=== PATIENT | male | born 1985 | race Caucasian/White ===

== ENCOUNTER 2020-05-30 03:50 | Emergency (ER) | payer SELFPAY ==
[~2020-05-30] VITALS: Ht 177.8 cm; Wt 78.5 kg
[2020-05-30 03:57] VITALS: BP 135/85
[2020-05-30] MEDS ORDERED: MORPHINE SULFATE 4 MG/ML SYR IVP ONE (04:10)
[2020-05-30] MEDS ORDERED: ASPIRIN 325 MG TAB PO ONE (04:10)
[2020-05-30 04:59] LABS: BASOPHILS % (AUTO) 0.7 % (0.0-2.0); EOSINOPHILS # (AUTO) 0.3 K/uL (0-0.4); EOSINOPHILS % (AUTO) 5.2 % (0.0-4.0); HEMATOCRIT 45.3 % (36-52); HEMOGLOBIN 15.8 g/dL (12.0-18.0); LYMPHOCYTES # (AUTO) 2.3 K/uL (2.0-11.5); LYMPHOCYTES % (AUTO) 38.5 % (20.5-51.1); MEAN CORPUSCULAR HEMOGLOBIN 31 pg (27-31); MEAN CORPUSCULAR HGB CONC 35 g/dL (33-37); MEAN CORPUSCULAR VOLUME 88.5 fL (80-94); MONOCYTES # (AUTO) 0.5 K/uL (0.8-1.0); MONOCYTES % (AUTO) 7.6 % (1.7-9.3); NEUTROPHILS # (AUTO) 2.9 K/uL (1.8-7.7); PLATELET COUNT (AUTO) 221 K/uL (140-450); RED BLOOD CELL COUNT(AUTO) 5.12 MIL/uL (4.20-6.10); RED CELL DISTRIBUTION WIDTH 13.4 % (11.6-13.7); WHITE BLOOD COUNT (AUTO) 6.1 K/uL (4.8-10.8)
[2020-05-30 05:16] LABS: ALBUMIN 4.2 g/dL (3.4-5.0); ANION GAP 13.4 (8-16); CARBON DIOXIDE 28.2 mmol/L (21-32); POTASSIUM 3.6 mmol/L (3.5-5.1); TOTAL BILIRUBIN 0.4 mg/dL (0.0-1.0)
[2020-05-30 07:00] VITALS: BP 106/88
== END 2020-05-30 07:00 | disposition home or self-care (01) ==
LOC: MED 03:50
DX: R07.9 Chest pain, unspecified (principal); R05 Cough
CPT/HCPCS: 36415; 71045; 80053; 84484; 85025; 85379; 93005; 96374; 99285; J2270; Q0092

== ENCOUNTER 2021-04-10 00:19 | Emergency (ER) | payer MEDICAID ==
[~2021-04-10] VITALS: Ht 180.3 cm; Wt 81.6 kg
[2021-04-10 00:46] VITALS: BP 115/52
--- NOTE | 2021-04-10 01:19 | NUR ---
LEFT ABDOMINAL PAIN BELOW RIBS X 4 DAYS. DENIES TRAUMA. DENIES URINARY COMPLAINTS. DENIES ANY N,V,D, OR BLOOD IN THE URINE OR STOOL. A&OX4. GCS 15. SKIN WNL. STEADY GAIT NOTED. RESP E/U. ABD IS FLAT, SOFT, ACTIVE BS, AND TENDERNESS TO TOUCH AROUND THE LT SIDED REGION. NO FEVERS, BODY ACHES, OR CHILLS. PT ATTACHED TO GEOLOGY PROFESSOR. CALL LIGHT WITHIN REACH. SIDDE RAILS UP X2. BED LOCKED IN PLACE AND AT THE LOWEST POSITION. NO DCREASE IN APPETITE. NKDA. PMH: DENIES.
--- NOTE | 2021-04-10 01:48 | NUR ---
Dr. Scott examining patient.
[2021-04-10] MEDS ORDERED: KETOROLAC 30 MG/ML VIAL IVP ONE (02:10)
[2021-04-10] MEDS ORDERED: FAMOTIDINE 20 MG TAB PO ONE (02:10)
[2021-04-10] MEDS ORDERED: ALUMINUM HYD/MAG/SIMETHICONE 30 ML UDC PO ONE (02:10)
--- NOTE | 2021-04-10 02:13 | NUR ---
LAB AT BEDSIDE
[2021-04-10 02:20] LABS: APPEARANCE,URINE CLEAR (CLEAR); BILIRUBIN,URINE NEGATIVE (NEGATIVE); BLOOD, URINE NEGATIVE (NEGATIVE); COLOR,URINE YELLOW (YELLOW); LEUKOCYTE ESTERASE ,URINE NEGATIVE (NEGATIVE); NITRITE, URINE NEGATIVE (NEGATIVE); PH,URINE 7.5 (5.0-9.0); UGLUCOSE NEGATIVE (NEGATIVE)
[2021-04-10 02:22] LABS: BASOPHILS # (AUTO) 0.1 K/uL (0.00-0.22); BASOPHILS % (AUTO) 0.8 % (0.0-2.0); EOSINOPHILS # (AUTO) 0.3 K/uL (0-0.4); EOSINOPHILS % (AUTO) 4.4 % (0.0-4.0); HEMOGLOBIN 14.7 g/dL (12.0-18.0); LYMPHOCYTES # (AUTO) 2.5 K/uL (2.0-11.5); MEAN CORPUSCULAR HEMOGLOBIN 30 pg (27-31); MEAN CORPUSCULAR HGB CONC 34 g/dL (33-37); MEAN CORPUSCULAR VOLUME 88.6 fL (80-94); MONOCYTES # (AUTO) 0.5 K/uL (0.8-1.0); MONOCYTES % (AUTO) 7.8 % (1.7-9.3); NEUTROPHILS # (AUTO) 3.2 K/uL (1.8-7.7); PLATELET COUNT (AUTO) 220 K/uL (140-450); RED BLOOD CELL COUNT(AUTO) 4.85 MIL/uL (4.20-6.10); RED CELL DISTRIBUTION WIDTH 13.6 % (11.6-13.7); WHITE BLOOD COUNT (AUTO) 6.6 K/uL (4.8-10.8)
[2021-04-10 02:31] LABS: ANION GAP 13.7 (8-16); CARBON DIOXIDE 28.2 mmol/L (21-32); CREATININE 1.2 mg/dL (0.6-1.3); POTASSIUM 3.9 mmol/L (3.5-5.1)
[2021-04-10 02:37] LABS: ALBUMIN 3.7 g/dL (3.4-5.0); TOTAL BILIRUBIN 0.3 mg/dL (0.0-1.0)
--- NOTE | 2021-04-10 04:01 | NUR ---
PT. LAYING IN SUPINE POSITION, VOICES NO COMPLAINTS AT THIS TIME. NO DISTRESS NOTED.
[2021-04-10] MEDS ORDERED: SUCR1TAB35 PO (04:25)
[2021-04-10] MEDS ORDERED: OMEP40EC23 PO (04:25)
[2021-04-10 04:35] VITALS: BP 117/78
--- NOTE | 2021-04-10 04:35 | NUR ---
Patient discharged with v/s stable. Written and verbal after care instructions given and explained. Patient alert, oriented and verbalized understanding of instructions. Ambulatory with steady gait. All questions addressed prior to discharge. ID band removed. Patient advised to follow up with PMD. Rx of PRILOSEC AND CARAFATE given. Patient educated on indication of medication including possible reaction and side effects. Opportunity to ask questions provided and answered.
== END 2021-04-10 04:35 | disposition home or self-care (01) ==
LOC: MED 00:19
DX: R10.9 Unspecified abdominal pain (principal)
CPT/HCPCS: 36415; 80053; 81003; 83690; 85025; 96374; 99283; J1885

== ENCOUNTER 2021-05-06 23:19 | Emergency (ER) | payer OTHER, MEDICAID ==
[~2021-05-06] VITALS: Ht 180.3 cm; Wt 81.6 kg
[~2021-05-06 23:19] MED LIST: OMEP40EC23 PO; SUCR1TAB35 PO
[2021-05-06] MEDS ORDERED: LIDOCAINE MPF 1% 10 MG/ML VIAL INJ ONE (23:40)
[2021-05-06 23:42] VITALS: BP 128/87
[2021-05-06] MEDS ORDERED: LIDOCAINE MPF 1% 5 ML ONE (23:44)
--- NOTE | 2021-05-06 23:50 | NUR ---
PT SEEN AND EVALUATED BY DR. TAM
[2021-05-06] MEDS ORDERED: BACITRACIN OINT 500 UNITS/GM PKT TP ONE ×2 (23:52→23:55)
[2021-05-07] MEDS ORDERED: KETOROLAC 60 MG/2 ML VIAL IM ONE ×2 (00:50→00:55)
[2021-05-07] MEDS ORDERED: NAPR-54 PO (01:09)
--- NOTE | 2021-05-07 01:15 | NUR ---
PT DISCHARGED BY DR. TAM. ALL DISCHARGE INSTRUCTIONS AND MEDICATION INFORMATION GIVEN BY DR. TAM. RX OF NAPROSYN GIVEN. PT LEFT FACILITY IN STABLE CONDITION.
== END 2021-05-07 01:15 | disposition home or self-care (01) ==
LOC: MED 23:19
DX: S60.111A Contusion of right thumb with damage to nail, initial encounter (principal); W22.8XXA Striking against or struck by other objects, initial encounter; Y93.89 Activity, other specified; Y92.89 Other specified places as the place of occurrence of the external cause; Y99.8 Other external cause status
CPT/HCPCS: 11730; 73130; 96372; 99284; J1885; J2001

== ENCOUNTER 2021-08-28 02:24 | Emergency (ER) | payer MEDICAID, OTHER ==
[~2021-08-28] VITALS: Ht 180.3 cm; Wt 81.6 kg
[~2021-08-28 02:24] MED LIST changes: +NAPR-54 PO
[2021-08-28 02:30] VITALS: BP 124/70
[2021-08-28] MEDS ORDERED: ASPIRIN 325 MG TAB PO ONE (02:50)
--- NOTE | 2021-08-28 02:50 | NUR ---
PT SEEN AND EVALUATED BY DR. MOYA.
[2021-08-28 03:00] LABS: BASOPHILS # (AUTO) 0.1 K/uL (0.00-0.22); BASOPHILS % (AUTO) 0.7 % (0.0-2.0); EOSINOPHILS # (AUTO) 0.5 K/uL (0-0.4); EOSINOPHILS % (AUTO) 6.1 % (0.0-4.0); HEMATOCRIT 43.1 % (36-52); HEMOGLOBIN 15.2 g/dL (12.0-18.0); LYMPHOCYTES # (AUTO) 2.6 K/uL (2.0-11.5); LYMPHOCYTES % (AUTO) 33.5 % (20.5-51.1); MEAN CORPUSCULAR HEMOGLOBIN 30 pg (27-31); MEAN CORPUSCULAR HGB CONC 35 g/dL (33-37); MEAN CORPUSCULAR VOLUME 85.6 fL (80-94); MONOCYTES # (AUTO) 0.5 K/uL (0.8-1.0); MONOCYTES % (AUTO) 6.5 % (1.7-9.3); NEUTROPHILS # (AUTO) 4.2 K/uL (1.8-7.7); NEUTROPHILS % (AUTO) 53.2 % (42.2-75.2); PLATELET COUNT (AUTO) 242 K/uL (140-450); RED BLOOD CELL COUNT(AUTO) 5.03 MIL/uL (4.20-6.10); RED CELL DISTRIBUTION WIDTH 13.9 % (11.6-13.7); WHITE BLOOD COUNT (AUTO) 7.8 K/uL (4.8-10.8)
[2021-08-28 04:04] LABS: ALBUMIN 4.2 g/dL (3.4-5.0); ANION GAP 12.7 (8-16); CARBON DIOXIDE 30.9 mmol/L (21-32); CREATININE 1.1 mg/dL (0.6-1.3); POTASSIUM 3.6 mmol/L (3.5-5.1); TOTAL BILIRUBIN 0.4 mg/dL (0.0-1.0)
[2021-08-28 04:18] LABS: PROTHROMBIN TIME 9.8 secs (10.8-13.4)
[2021-08-28] MEDS ORDERED: IBUPROFEN 800 MG TAB PO ONE (04:45)
[2021-08-28] MEDS ORDERED: PANTOPRAZOLE 40 MG TABEC PO ONE (04:45)
[2021-08-28] MEDS ORDERED: ASPIRIN 325 MG TAB ONE (05:23)
[2021-08-28 05:59] VITALS: BP 123/69
--- NOTE | 2021-08-28 05:59 | NUR ---
Patient discharged with v/s stable. Written and verbal after care instructions given and explained. Patient verbalized understanding. Ambulatory with steady gait. All questions addressed prior to discharge. Advised to follow up with PMD.
== END 2021-08-28 05:59 | disposition home or self-care (01) ==
LOC: MED 02:24
DX: R07.89 Other chest pain (principal); R06.02 Shortness of breath; R10.9 Unspecified abdominal pain; Z79.899 Other long term (current) drug therapy
CPT/HCPCS: 36415; 71045; 80053; 84484; 85025; 85610; 85730; 93005; 99285

== ENCOUNTER 2024-03-26 03:06 | Emergency (ER) | payer OTHER, MEDICAID ==
[~2024-03-26] VITALS: Ht 180.3 cm; Wt 84.8 kg
[~2024-03-26 03:06] MED LIST changes: +NAPR-337 PO; -NAPR-54 PO; +SUCR-3 PO; -SUCR1TAB35 PO
[2024-03-26 03:08] VITALS: BP 113/80; PULSE 74; RESP 78; TEMP 97.1; O2SAT 99
[2024-03-26] MEDS: KETOROLAC 60 MG/2 ML VIAL IM ONE (04:28)
[2024-03-26] MEDS ORDERED: CLIN150C1 PO (04:32)
[2024-03-26] MEDS ORDERED: IBUP-2217 PO (04:33)
[2024-03-26 04:51] VITALS: BP 118/80; PULSE 81; RESP 78; TEMP 97.9; O2SAT 99
== END 2024-03-26 04:51 | disposition home or self-care (01) ==
LOC: MED 03:06
DX: L03.113 Cellulitis of right upper limb (principal); M70.31 Other bursitis of elbow, right elbow; Z79.1 Long term (current) use of non-steroidal anti-inflammatories (NSAID); Z79.899 Other long term (current) drug therapy
CPT/HCPCS: 73080; 96372; 99283; J1885; Q0092

== ENCOUNTER 2024-04-05 23:40 | Emergency (ER) | payer OTHER, MEDICAID ==
[~2024-04-05] VITALS: Ht 180.3 cm; Wt 87.1 kg
[~2024-04-05 23:40] MED LIST changes: +CLIN150C1 PO; +IBUP-2217 PO
[2024-04-06 00:02] VITALS: BP 129/84; PULSE 77; RESP 16; TEMP 98; O2SAT 98
[2024-04-06] MEDS ORDERED: SULF-59 PO (01:03)
[2024-04-06] MEDS: KETOROLAC 30 MG/ML VIAL IM ONE (01:03)
[2024-04-06] MEDS ORDERED: LID5T TP (01:03)
[2024-04-06] MEDS ORDERED: NAPR-337 PO (01:05)
[2024-04-06 01:10] VITALS: BP 129/84; PULSE 77; RESP 16; TEMP 98; O2SAT 98
== END 2024-04-06 01:10 | disposition home or self-care (01) ==
LOC: MED 23:40
DX: M70.21 Olecranon bursitis, right elbow (principal); Z79.899 Other long term (current) drug therapy
CPT/HCPCS: 96372; 99283; J1885